=== PATIENT | female | born 1990 | race African-American/Black ===

== ENCOUNTER 2018-02-20 10:02 | Emergency (ER) | payer BC ==
--- NOTE | 2018-02-20 10:14 | PHYS DOC ---
Past History Past Medical History: No Pertinent History Past Surgical History: No Surgical History Alcohol Use: None Drug Use: None Adult General Chief Complaint Chief Complaint: ABDOMINAL PAIN HPI HPI Patient is a 27 year old -Congol[place] female who presents with adult pain. She states she started her menstrual cycle 3 and this morning she has a history of endometriosis and the pain has flared up. She states she started vomiting and vomited several times. She denies any blood in her vomit. She denies any diarrhea. She states that because of her vomiting she was unable taking Advil. She states normally she is able to keep the pain somewhat controlled with over- the-counter medicines. She states this morning because she is vomiting her pains been out of control. She does report suprapubic pain. She has had a tubal ligation in the past. She states her endometriosis was under control and she was that for that's been flaring up again. She states nothing makes the pain better or worse. It's in her suprapubic area and its crampy in nature. She denies any other vaginal discharge. Review of Systems Review of Systems Constitutional: Denies fever or chills [] Eyes: Denies change in visual acuity, redness, or eye pain [] HENT: Denies nasal congestion or sore throat [] Respiratory: Denies cough or shortness of breath [] Cardiovascular: No additional information not addressed in HPI [] GI: Positive for abdominal pain, nausea, vomiting, Denies bloody stools or diarrhea [] : Denies dysuria or hematuria [] Musculoskeletal: Denies back pain or joint pain [] Integument: Denies rash or skin lesions [] Neurologic: Denies headache, focal weakness or sensory changes [] Endocrine: Denies polyuria or polydipsia [] All other systems were reviewed and found to be within normal limits, except as documented in this note. Current Medications Current Medications Current Medications Medications (Trade) Dose Ordered Sig/Katherine Start Time Stop Time Status Last Admin Dose Admin Morphine Sulfate (Morphine 2mg Syringe) 2 mg PRN Q15MIN PRN 02/20/18 10:15 02/21/18 10:14 UNV Sodium Chloride 1,000 ml @ 1,000 mls/hr Q1H 02/20/18 10:10 02/20/18 11:09 UNV Allergies Allergies Allergies Coded Allergies Type Severity Reaction Last Updated Verified No Known Drug Allergies 6/29/15 No Physical Exam Physical Exam Constitutional: Well developed, well nourished, no acute distress, non-toxic appearance. [] HENT: Normocephalic, atraumatic, bilateral external ears normal, oropharynx moist, no oral exudates, nose normal. [] Eyes: PERRLA, EOMI, conjunctiva normal, no discharge. [] Neck: Normal range of motion, no tenderness, supple, no stridor. [] Cardiovascular:Heart rate regular rhythm, no murmur [] Lungs & Thorax: Bilateral breath sounds clear to auscultation [] Abdomen: Bowel sounds hypoactive soft, tender to palpation epigastric area and suprapubic area no rebound or guarding, no masses, no pulsatile masses. [] Skin: Warm, dry, no erythema, no rash. [] Back: No tenderness, no CVA tenderness. [] Extremities: No tenderness, no cyanosis, no clubbing, ROM intact, no edema. [] Neurologic: Alert and oriented X 3, normal motor function, normal sensory function, no focal deficits noted. [] Psychologic: Affect normal, judgement normal, mood normal. [] EKG EKG EKG shows sinus rhythm with rate of 52 bpm without any concerning ST elevations or T-wave inversions, normal axis, QTC 449, as interpreted by me. Radiology/Procedures Radiology/[place] [address] IMAGING REPORT Signed PATIENT: JAMAL DE SOUZA ACCOUNT: [id number] : 1990 LOCATION: ER AGE: 27 SEX: F EXAM STATUS: REG ER ORD. PHYSICIAN: TERENCE TUCKER MD REASON: pain PROCEDURE: CT ABD PELV W/ IV CONTRST ONLY CT study of the abdomen and pelvis with contrast Clinical indications: Mid abdominal pain for one day. Technique: After IV infusion of 75 cc of Omnipaque 300, helical CT scanning of the abdomen and pelvis was performed. No GI contrast was administered. This may decrease the sensitivity to detect GI tract pathology. RS Compliance Statement: One or more of the following individualized dose reduction techniques were utilized for this examination: 1. Automated exposure control 2. Adjustment of the mA and/or kV according to patient size 3. Use of iterative reconstruction technique Comparison: November 20, 2006. Findings: The spleen measures 8.2 cm in length and is normal and the spleen is homogeneous. There is severe periportal edema involving the liver. There is fluid within the gallbladder fossa around the gallbladder. The gallbladder appears normal. No extrahepatic biliary ductal dilatation is seen. An annular pancreas is seen which is a normal anatomical variant. Pancreas enhances homogeneously. The IVC is distended measuring up to 3.3 cm. There is distention of the intrahepatic veins. The intrahepatic veins enhance normally. Portal vein enhances normally. No focal aneurysmal dilatation of the abdominal aorta is seen. No enlarged abdominal or pelvic lymphadenopathy is seen. Both kidneys are normal without hydronephrosis or hydroureter. No adrenal mass is evident. Urinary bladder wall is smooth. There is decreased enhancement of the left side of the uterus. This area measures 3.4 cm. No dominant ovarian cyst or mass is evident. No obstructive bowel pattern is evident. All of the colon is on the left side of the abdomen consistent with at least a partial malrotation. However, the previous study demonstrated part of the colon on the right side of the abdomen as well. The previous study demonstrated a normal ligament of Treitz. No free air or free fluid or mesenteric edema is seen. No lung base consolidation is evident. No osteolytic process is seen. IMPRESSION: There is severe periportal edema. This may be seen with hepatitis. However, there is abnormal distention of the IVC measuring up to 3.3 cm along with distention of the intrahepatic veins. Periportal edema may be seen with right-sided heart failure given the distention of the IVC. Small amount of fluid is seen within the gallbladder fossa most likely secondary to the periportal edema. Gallbladder appears normal otherwise. Annular pancreas which is a anatomical variant. The colon is completely on the left side of the abdomen suggesting at least a partial malrotation. However, part of the colon was present on right side abdomen as well on the previous study. Has patient had surgery in the interim? The appendix is not visualized as a result. However there are no CT findings indicative of appendicitis. No bowel obstruction or free air or free fluid is evident otherwise. 3.4 cm area of decreased enhancement of the left side of the uterus. This may be secondary to uterine fibroid. Endometrial malignancy or adenomyosis may have this appearance as well. This may be further evaluated with outpatient transabdominal and transvaginal sonography. DICTATED AND SIGNED BY: DOUG MG MD DATE: 02/20/18 1330 CC: TERENCE TUCKER MD; PCP,NO ~ [address] [address] IMAGING REPORT Signed PATIENT: JAMAL DE SOUZA ACCOUNT: [id number] : 1990 LOCATION: ER AGE: 27 SEX: F EXAM STATUS: REG ER ORD. PHYSICIAN: TERENCE TUCKER MD REASON: pain PROCEDURE: US PELVIS W/TV Transabdominal and transvaginal sonography of the pelvis Indications: Abdominal pain for one day. Started menstruation at 3:00 AM this morning. Severe cramps. History of endometriosis. Comparison: CT study performed today. Transabdominal sonography: The uterus is anteverted in position. The longitudinal and AP and transverse dimensions of the uterus are 8.4 cm and 4.4 cm and 4.5 cm respectively. The endometrial canal measures 5 mm in caliber which is normal. No uterine mass or fibroid is seen. The right ovary is not visualized by transabdominal exam. Therefore, transvaginal sonography will be performed. The left ovary is normal. Prominent adnexal vasculature is seen bilaterally. Transvaginal sonography: The endometrial canal measures 6.6 cm in thickness which is normal. No hyperemia of the endometrial canal is seen. The uterus appears normal otherwise. Therefore, the finding seen on CT may represent differential perfusion attenuation and is a normal finding therefore. The right ovary measures 2.7 cm and 2.9 cm and 1.6 cm in size and contains a 1.5 cm cyst. Color Doppler flow is seen within the right ovary. The left ovary measures 2.2 cm and 3.3 cm and 2.0 cm in size and is normal. Color Doppler flow is seen within the left ovary. Prominent adnexal vasculature is seen bilaterally more so on the left side. No adnexal mass is seen otherwise. No free fluid is evident. IMPRESSION: Normal-appearing uterus. Therefore, the finding seen on CT represents differential perfusion attenuation of the uterus which may be seen normally. There is a 1.5 cm follicular cyst of the right ovary. Otherwise both ovaries are normal. Color Doppler flow is seen within both ovaries. Prominent adnexal vasculature bilaterally which may be seen with pelvic congestion syndrome. This pelvic congestion. This is prominent on the left side by sonography and within reviewing the CT study appears more prominent on the left side on the CT study as well. On the CT study, the left ovarian vein is patent all the way up to to the left renal vein. It is possible that the pelvic congestion findings could be a reflection of the distended IVC discussed on the CT study. The iliac veins are distended as well. DICTATED AND SIGNED BY: DOUG MG MD DATE: 02/20/18 9344 CC: TERENCE TUCKER MD; PCP,NO ~ Impressions: Abdominal pain Elevated lactic acid Course & Med Decision Making Course & Med Decision Making Pertinent Labs and Imaging studies reviewed. (See chart for details) Patient has elevated lactic acid of 4.7. She received 2 L of normal saline CT scan shows possible malrotation in addition to dilation the IVC. Ultrasound was also performed which shows similar results of her pelvis. Spoke with transfer team who accepts the patient emergently to . She was given 1 dose of Zosyn. Her pain currently is controlled and repeat labs shows improvement in her acidosis. She is agreeable to the plan and is in stable condition at this time. It was explained to the patient she needs emergent surgery a few weeks transferred emergently to the [facility]. Her and her boyfriend's agreeable to plan and she is in stable condition this time. I spent approximately 55 minutes working and engaged directly in the patient care providing critical care evaluation this includes but not limited to time spent engaged in work directly related to the individual patients care. I spent time at the bedside, reviewing test results, discussing the case with staff, documenting the medical record and time spent with EMS discussing specific treatment issues when the patient presented and during his evaluation. This includes any discussion and updates with family members and/or patient. Dragon Disclaimer Dragon Disclaimer This electronic medical record was generated, in whole or in part, using a voice recognition dictation system. Departure Departure: Impression: Primary Impression: Abdominal pain Disposition: XFER OTHER Condition: STABLE Referrals: PCP,NO (PCP) Problem Qualifiers Primary Impression: Abdominal pain Abdominal location: unspecified location Qualified Codes: R10.9 - Unspecified abdominal pain TERENCE TUCKER MD Feb 20, 2018 10:14
[2018-02-20] MEDS ORDERED: MORPHINE SULFATE 2 MG/ML DISP.SYRIN. IV/SQ PRN (10:15)
[2018-02-20] MEDS ORDERED: MORPHINE SULFATE 4 MG/ML DISP.SYRIN. ONE (10:19)
--- NOTE | 2018-02-20 10:23 | EKG ---
[address] [address] Test Date: 2018-02-20 Test Time: 10:19:38 Pat Name: JAMAL DE SOUZA Department: Room: Gender: F [employer] Digger: : 1990 Requested By: TERENCE TUCKER Order Number: [id number] Reading MD: Harjinder Johnson MD Measurements Intervals [place] Rate: 52 P: 0 MD: 104 QRS: 84 QRSD: 78 T: 60 QT: 480 QTc: 449 Interpretive Statements SINUS RHYTHM Electronically Signed On 02-22-2018 13:33:30 CDT by Harjinder Johnson MD
[2018-02-20] MEDS: IV NORMAL SALINE 1,000ML 1,000 ML IV SCH ×2 (10:26→11:22)
[2018-02-20 10:27] LABS: BASO % 1 % (0-3); EOS % 0 % (0-3); HEMATOCRIT 39.7 % (36.0-47.0); HEMOGLOBIN 13.4 g/dL (12.0-15.5); LYMPH # 0.9 x10^3/uL (1.0-4.8); LYMPH % 14 % (24-48); MEAN CORPUSCULAR HEMOGLOBIN 33 pg (25-35); MEAN CORPUSCULAR HGB CONC 34 g/dL (31-37); MEAN CORPUSCULAR VOLUME 99 fL (79-100); MONO # 0.4 x10^3/uL (0.0-1.1); MONO % 6 % (0-9); NEUT # 5.4 x10^3uL (1.8-7.7); NEUT % 79 % (31-73); PLATELET COUNT 191 x10^3/uL (140-400); RED BLOOD COUNT 4.01 x10^6/uL (3.50-5.40); RED CELL DISTRIBUTION WIDTH 15.4 % (11.5-14.5); WHITE BLOOD COUNT 6.8 x10^3/uL (4.0-11.0)
[2018-02-20] MEDS ORDERED: ONDANSETRON PF 4 MG/2 ML VIAL. IV ONE (10:30)
[2018-02-20] MEDS: MORPHINE SULFATE 4 MG/ML DISP.SYRIN. IV/SQ PRN ×4 (10:31→14:40)
[2018-02-20 10:40] LABS: PREG TEST PT QUAL NEGATIVE (NEG)
[2018-02-20 10:51] LABS: ALBUMIN 3.8 g/dL (3.4-5.0); ALK PHOS 52 U/L (46-116); ALT (SGPT) 25 U/L (14-59); ANION GAP 17 (6-14); AST (SGOT) 28 U/L (15-37); BLOOD UREA NITROGEN 10 mg/dL (7-20); CALCIUM 9.2 mg/dL (8.5-10.1); CARBON DIOXIDE 17 mmol/L (21-32); CHLORIDE 106 mmol/L (98-107); DIRECT BILIRUBIN 0.1 mg/dL (0.0-0.2); GFR 79.3; GLUCOSE 157 mg/dL (70-99); LIPASE 83 U/L (73-393); POTASSIUM 3.9 mmol/L (3.5-5.1); SODIUM 140 mmol/L (136-145); TOTAL BILIRUBIN 0.5 mg/dL (0.2-1.0)
[2018-02-20] MEDS ORDERED: IOHEXOL 300 MG/ML 75 ML VIAL. IV ONE (11:15)
[2018-02-20 11:18] LABS: BARBITURATES NEG (NEG); BENZODIAZEPINES NEG (NEG); CANNABINOIDS POS (NEG); COCAINE NEG (NEG); METHADONE NEG (NEG); OPIATES POS (NEG); PHENCYCLIDINE NEG (NEG)
[2018-02-20 11:19] LABS: AMPHETAMINE/METHAMPHETAMINE NEG (NEG)
[2018-02-20 11:24] LABS: BILIRUBIN,URINE NEG (NEG); CLARITY,URINE HAZY; COLOR,URINE AMBER; GLUCOSE,URINE NEG (NEG); NITRITE,URINE NEG (NEG); UROBILINOGEN,URINE 0.2 mg/dL (0.2 mg/dL)
[2018-02-20 11:25] LABS: BACTERIA,URINE MOD /HPF (0-FEW); SQUAMOUS EPITHELIAL CELL,UR FEW /LPF
[2018-02-20] MEDS ORDERED: PROMETHAZINE 12.5 MG in IV NORMAL SALINE 50ML 50 ML IV PRN (11:30)
[2018-02-20] MEDS ORDERED: PROMETHAZINE 25 MG/ML VIAL IV ONE (11:36)
[2018-02-20] MEDS ORDERED: IV NORMAL SALINE 1,000ML 1,000 ML IV ONE (11:45)
--- NOTE | 2018-02-20 12:48 | RAD ---
CT study of the abdomen and pelvis with contrast Clinical indications: Mid abdominal pain for one day. Technique: After IV infusion of 75 cc of Omnipaque 300, helical CT scanning of the abdomen and pelvis was performed. No GI contrast was administered. This may decrease the sensitivity to detect GI tract pathology. PQRS Compliance Statement: One or more of the following individualized dose reduction techniques were utilized for this examination: 1. Automated exposure control 2. Adjustment of the mA and/or kV according to patient size 3. Use of iterative reconstruction technique Comparison: November 20, 2006. Findings: The spleen measures 8.2 cm in length and is normal and the spleen is homogeneous. There is severe periportal edema involving the liver. There is fluid within the gallbladder fossa around the gallbladder. The gallbladder appears normal. No extrahepatic biliary ductal dilatation is seen. An annular pancreas is seen which is a normal anatomical variant. Pancreas enhances homogeneously. The IVC is distended measuring up to 3.3 cm. There is distention of the intrahepatic veins. The intrahepatic veins enhance normally. Portal vein enhances normally. No focal aneurysmal dilatation of the abdominal aorta is seen. No enlarged abdominal or pelvic lymphadenopathy is seen. Both kidneys are normal without hydronephrosis or hydroureter. No adrenal mass is evident. Urinary bladder wall is smooth. There is decreased enhancement of the left side of the uterus. This area measures 3.4 cm. No dominant ovarian cyst or mass is evident. No obstructive bowel pattern is evident. All of the colon is on the left side of the abdomen consistent with at least a partial malrotation. However, the previous study demonstrated part of the colon on the right side of the abdomen as well. The previous study demonstrated a normal ligament of Treitz. No free air or free fluid or mesenteric edema is seen. No lung base consolidation is evident. No osteolytic process is seen. IMPRESSION: There is severe periportal edema. This may be seen with hepatitis. However, there is abnormal distention of the IVC measuring up to 3.3 cm along with distention of the intrahepatic veins. Periportal edema may be seen with right-sided heart failure given the distention of the IVC. Small amount of fluid is seen within the gallbladder fossa most likely secondary to the periportal edema. Gallbladder appears normal otherwise. Annular pancreas which is a anatomical variant. The colon is completely on the left side of the abdomen suggesting at least a partial malrotation. However, part of the colon was present on right side abdomen as well on the previous study. Has patient had surgery in the interim? The appendix is not visualized as a result. However there are no CT findings indicative of appendicitis. No bowel obstruction or free air or free fluid is evident otherwise. 3.4 cm area of decreased enhancement of the left side of the uterus. This may be secondary to uterine fibroid. Endometrial malignancy or adenomyosis may have this appearance as well. This may be further evaluated with outpatient transabdominal and transvaginal sonography.
--- NOTE | 2018-02-20 13:13 | RAD ---
Transabdominal and transvaginal sonography of the pelvis Indications: Abdominal pain for one day. Started menstruation at 3:00 AM this morning. Severe cramps. History of endometriosis. Comparison: CT study performed today. Transabdominal sonography: The uterus is anteverted in position. The longitudinal and AP and transverse dimensions of the uterus are 8.4 cm and 4.4 cm and 4.5 cm respectively. The endometrial canal measures 5 mm in caliber which is normal. No uterine mass or fibroid is seen. The right ovary is not visualized by transabdominal exam. Therefore, transvaginal sonography will be performed. The left ovary is normal. Prominent adnexal vasculature is seen bilaterally. Transvaginal sonography: The endometrial canal measures 6.6 cm in thickness which is normal. No hyperemia of the endometrial canal is seen. The uterus appears normal otherwise. Therefore, the finding seen on CT may represent differential perfusion attenuation and is a normal finding therefore. The right ovary measures 2.7 cm and 2.9 cm and 1.6 cm in size and contains a 1.5 cm cyst. Color Doppler flow is seen within the right ovary. The left ovary measures 2.2 cm and 3.3 cm and 2.0 cm in size and is normal. Color Doppler flow is seen within the left ovary. Prominent adnexal vasculature is seen bilaterally more so on the left side. No adnexal mass is seen otherwise. No free fluid is evident. IMPRESSION: Normal-appearing uterus. Therefore, the finding seen on CT represents differential perfusion attenuation of the uterus which may be seen normally. There is a 1.5 cm follicular cyst of the right ovary. Otherwise both ovaries are normal. Color Doppler flow is seen within both ovaries. Prominent adnexal vasculature bilaterally which may be seen with pelvic congestion syndrome. This pelvic congestion. This is prominent on the left side by sonography and within reviewing the CT study appears more prominent on the left side on the CT study as well. On the CT study, the left ovarian vein is patent all the way up to to the left renal vein. It is possible that the pelvic congestion findings could be a reflection of the distended IVC discussed on the CT study. The iliac veins are distended as well.
[2018-02-20] MEDS ORDERED: PIPERACILLIN/TAZOBACTAM 4.5 GM in IV NORMAL SALINE 50ML 50 ML IV ONE (13:15)
[2018-02-20] MEDS ORDERED: PIP/TAZO PER PHARMACY MC PRN (13:15)
[2018-02-20 13:46] LABS: CREATININE 0.7 mg/dL (0.6-1.0); GFR 119.7; POTASSIUM 3.8 mmol/L (3.5-5.1)
[2018-02-20 14:21] VITALS: BP 114/67
[2018-02-20] MEDS ORDERED: IV NORMAL SALINE 50ML 50 ML ONE (14:31)
[2018-02-20] MEDS ORDERED: PIPERACILLIN/TAZOBACTAM 4.5 GM VIAL IV ONE (14:31)
[2018-02-20] MEDS ORDERED: PROMETHAZINE 12.5 MG in IV NORMAL SALINE 50ML 50 ML IV ONE (15:15)
== END 2018-02-20 14:45 | disposition short-term general hospital (02) ==
LOC: ER 10:02
DX: R10.30 Lower abdominal pain, unspecified (principal); R10.13 Epigastric pain; R11.2 Nausea with vomiting, unspecified; R74.0 Nonspecific elevation of levels of transaminase and lactic acid dehydrogenase [LDH]
CPT/HCPCS: 36415; 74177; 76830; 76856; 80048; 80076; 80307; 81001; 82553; 83605; 83690; 84484; 84703; 85025; 87086; 93005; 96361; 96365; 96375; 96376; 99291; J2270; J2405; J2543; J2550; Q9967; 81025; G0479; J7030

== ENCOUNTER 2020-01-02 09:59 | Emergency (ER) | payer SELFPAY ==
[~2020-01-02] VITALS: Ht 167.6 cm; Wt 52.2 kg
[2020-01-02] MEDS ORDERED: IV NORMAL SALINE 1,000ML 1,000 ML IV ONE ×2 (10:45→13:00)
[2020-01-02] MEDS ORDERED: ONDANSETRON PF 4 MG/2 ML VIAL. IVP ONE (10:45)
[2020-01-02 10:48] LABS: CALCIUM 8.4 mg/dL (8.5-10.1); CREATININE 0.8 mg/dL (0.6-1.0); GFR 101.2; POTASSIUM 3.2 mmol/L (3.5-5.1)
[2020-01-02 10:53] LABS: BASO % 0 % (0-3); EOS % 0 % (0-3); HEMOGLOBIN 14.7 g/dL (12.0-15.5); LYMPH # 1.2 x10^3/uL (1.0-4.8); LYMPH % 19 % (24-48); MEAN CORPUSCULAR HEMOGLOBIN 33 pg (25-35); MEAN CORPUSCULAR HGB CONC 33 g/dL (31-37); MEAN CORPUSCULAR VOLUME 100 fL (79-100); MONO # 0.6 x10^3/uL (0.0-1.1); MONO % 9 % (0-9); NEUT # 4.7 x10^3uL (1.8-7.7); NEUT % 72 % (31-73); PLATELET COUNT 144 x10^3/uL (140-400); PREG TEST PT QUAL NEGATIVE (NEG); RED BLOOD COUNT 4.39 x10^6/uL (3.50-5.40); RED CELL DISTRIBUTION WIDTH 14.9 % (11.5-14.5); WHITE BLOOD COUNT 6.5 x10^3/uL (4.0-11.0)
[2020-01-02 10:54] LABS: ALBUMIN 3.8 g/dL (3.4-5.0); TOTAL BILIRUBIN 0.4 mg/dL (0.2-1.0); TOTAL PROTEIN 7.5 g/dL (6.4-8.2)
--- NOTE | 2020-01-02 10:54 | PHYS DOC ---
Past History Past Medical History: GERD, Other Past Surgical History: Tubal ligation, Other Alcohol Use: Occasionally Drug Use: None Adult General Chief Complaint Chief Complaint: NAUSEA/VOMITING/DIARRHEA HPI HPI Patient is a 29-year-old female who presented to ER today for evaluation of nausea, vomiting, diarrhea, abdominal pain Wednesday. Patient had not been able to keep anything down. Patient says she started feeling sick on Wednesday, she had vomited hard multiple times then afterward she started having severe pain in her abdominal area. Patient has history of bowel obstruction in the past, that required operation to fix. Patient denies any recent travel anywhere. She denies any sore throat, no chest pain, no cough, no headache. Patient denies any blood in her stool. Review of Systems Review of Systems Constitutional: Positive for fever and chills [] Eyes: Denies change in visual acuity, redness, or eye pain [] HENT: Denies nasal congestion or sore throat [] Respiratory: Denies cough or shortness of breath [] Cardiovascular: No additional information not addressed in HPI [] GI: positive for abdominal pain, nausea, vomiting, and diarrhea [] : Denies dysuria or hematuria [] Musculoskeletal: Denies back pain or joint pain [] Integument: Denies rash or skin lesions [] Neurologic: Denies headache, focal weakness or sensory changes [] Endocrine: Denies polyuria or polydipsia [] All other systems were reviewed and found to be within normal limits, except as documented in this note. Current Medications Current Medications Current Medications Medications (Trade) Dose Ordered Sig/[facility] Start Time Stop Time Status Last Admin Dose Admin Ondansetron HCl (Zofran) 4 mg 1X ONCE 01/02/20 10:45 01/02/20 10:46 DC Sodium Chloride 1,000 ml @ 1,000 mls/hr 1X ONCE 01/02/20 10:45 01/02/20 11:44 01/02/20 10:45 1,000 MLS/HR Allergies Allergies Allergies Coded Allergies Type Severity Reaction Last Updated Verified No Known Drug Allergies 05/13/15 No Physical Exam Physical Exam Constitutional: Well developed, well nourished, no acute distress, non-toxic appearance. [] HENT: Normocephalic, atraumatic, bilateral external ears normal, oropharynx moist, no oral exudates, nose normal. [] Eyes: PERRLA, EOMI, conjunctiva normal, no discharge. [] Neck: Normal range of motion, no tenderness, supple, no stridor. [] Cardiovascular:Heart rate regular rhythm, no murmur [] Lungs & Thorax: Bilateral breath sounds clear to auscultation [] Abdomen: Bowel sounds normal, soft, there tenderness to palpation in midabdominal area, no rebound, no guarding, no masses, no pulsatile masses. [] Skin: Warm, dry, no erythema, no rash. [] Back: No tenderness, no CVA tenderness. [] Extremities: No tenderness, no cyanosis, no clubbing, ROM intact, no edema. [] Neurologic: Alert and oriented X 3, normal motor function, normal sensory function, no focal deficits noted. [] Psychologic: Affect normal, judgement normal, mood normal. [] Current Patient Data Vital Signs Vital Signs Date Time Temp Pulse Resp B/P (MAP) Pulse Ox O2 Delivery O2 Flow Rate FiO2 01/02/20 10:22 100.5 118 18 111/71 (84) 96 Room Air Lab Results Laboratory Tests Test 01/02/20 10:15 White Blood Count 6.5 x10^3/uL (4.0-11.0) Red Blood Count 4.39 x10^6/uL (3.50-5.40) Hemoglobin 14.7 g/dL (12.0-15.5) Hematocrit 44.0 % (36.0-47.0) Mean Corpuscular Volume 100 fL (79-100) Mean Corpuscular Hemoglobin 33 pg (25-35) Mean Corpuscular Hemoglobin Concent 33 g/dL (31-37) Red Cell Distribution Width 14.9 % (11.5-14.5) H Platelet Count 144 x10^3/uL (140-400) Neutrophils (%) (Auto) 72 % (31-73) Lymphocytes (%) (Auto) 19 % (24-48) L Monocytes (%) (Auto) 9 % (0-9) Eosinophils (%) (Auto) 0 % (0-3) Basophils (%) (Auto) 0 % (0-3) Neutrophils # (Auto) 4.7 x10^3uL (1.8-7.7) Lymphocytes # (Auto) 1.2 x10^3/uL (1.0-4.8) Monocytes # (Auto) 0.6 x10^3/uL (0.0-1.1) Eosinophils # (Auto) 0.0 x10^3/uL (0.0-0.7) Basophils # (Auto) 0.0 x10^3/uL (0.0-0.2) Sodium Level 137 mmol/L (136-145) Potassium Level 3.2 mmol/L (3.5-5.1) L Chloride Level 102 mmol/L (98-107) Carbon Dioxide Level 19 mmol/L (21-32) L Anion Gap 16 (6-14) H Blood Urea Nitrogen 7 mg/dL (7-20) Creatinine 0.8 mg/dL (0.6-1.0) Estimated GFR (Cockcroft-Gault) 101.2 BUN/Creatinine Ratio 9 (6-20) Glucose Level 85 mg/dL (70-99) Calcium Level 8.4 mg/dL (8.5-10.1) L Total Bilirubin Pending Aspartate Amino Transferase (AST) Pending Alanine Aminotransferase (ALT) Pending Alkaline Phosphatase Pending Total Protein Pending Albumin Pending Albumin/Globulin Ratio Pending Lipase Pending Serum Test, Qualitative Negative (NEG) EKG EKG [] Radiology/Procedures Radiology/Procedures [][place] [address] IMAGING REPORT Signed PATIENT: JAMLA DE SOUZA ACCOUNT: [id number] : 1990 LOCATION: ER AGE: 29 SEX: F EXAM STATUS: REG ER ORD. PHYSICIAN: JIL MCGILL DO REASON: abdominal pain, nausea, vomiting-DRINKING 12:00 PROCEDURE: CT ABD PEL W/ORAL CONTRST ONLY EXAM: CT Abdomen and Pelvis without IV contrast CLINICAL HISTORY: abdominal pain, nausea, vomiting. COMPARISON: 02/20/2018 TECHNIQUE: Helical CT of the abdomen and pelvis without intravenous contrast. Axial, coronal and sagittal reformatted images were generated. PQRS compliance statement - One or more of the following individualized dose reduction techniques were utilized for this study: 1. Automated exposure control 2. Adjustment of the mA and/or kV according to patient size 3. Use of iterative reconstruction technique FINDINGS: Lack of intravenous contrast limits evaluation of solid organs, vasculature, and lymph nodes. Lower chest: Groundglass opacities in the medial right lower lobe likely atelectasis or developing consolidation. Abdomen and Pelvis: No focal liver lesion. Accounting for postcholecystectomy state, no biliary ductal dilatation. Spleen is unremarkable. Adrenal glands and pancreas are unremarkable. Punctate nonobstructing right lower pole renal calculus. No focal renal lesion. No hydronephrosis. Appendix is not seen. No small or large bowel dilatation. Moderate colonic stool content. Small fat-containing periumbilical hernia. Bones: No aggressive osseous lesion is seen. IMPRESSION: 1. Nonobstructing right lower pole renal calculus. 2. No bowel obstruction. 3. The appendix is not seen although no significant right lower quadrant inflammatory changes are seen. Electronically signed by: Severo Fields MD (01/02/2020 1:21 PM) [id number] DICTATED AND SIGNED BY: SEVERO FIELDS MD DATE: 01/02/20 1321 CC: MARGOT DYER; JIL MCGILL DO ~ Course & Med Decision Making Course & Med Decision Making Pertinent Labs and Imaging studies reviewed. (See chart for details) Patient is a 29-year-old female who was fOUND to have influenza, she was given IV fluid in the ER, feeling much better. Her symptoms have been going on since Wednesday, Tamiflu would not be effective anymore. We'll discharge her home with nausea medication. Dragon Disclaimer Dragon Disclaimer This electronic medical record was generated, in whole or in part, using a voice recognition dictation system. Departure Departure: Impression: Primary Impression: Influenza Additional Impression: Gastroenteritis Disposition: HOME, SELF-CARE Condition: IMPROVED Referrals: PCPMARGOT (PCP) Follow with her family doctor in a couple day for reevaluation. Patient Instructions: Influenza, Adult, Viral Gastroenteritis Additional Instructions: Thank you for visiting our Emergency Department. We appreciate you trusting us with your care. If any additional problems come up don't hesitate to return to visit us. Please follow up with your primary care provider so they can plan additional care if needed and know about the problem that you had. If symptoms worsen come back to the Emergency Department. Any concerning symptoms that start such as chest pain, shortness of air, weakness or numbness on one side of the body, running high fevers or any other concerning symptoms return to the ER. Scripts Ondansetron Hcl (ZOFRAN) 4 Mg Tablet 1 TAB PO Q6HRS for NAUSEA , #15 TAB Prov: JIL MCGILL DO 01/02/20 Problem Qualifiers JIL MCGILL DO Jan 02, 2020 10:54
[2020-01-02 11:25] LABS: BILIRUBIN,URINE NEG (NEG); CLARITY,URINE CLOUDY; COLOR,URINE YELLOW; GLUCOSE,URINE NEG (NEG); NITRITE,URINE NEG (NEG)
[2020-01-02 11:26] LABS: BACTERIA,URINE FEW /HPF (0-FEW); SQUAMOUS EPITHELIAL CELL,UR MOD /LPF
[2020-01-02 11:31] LABS: INFLUENZA A PATIENT NEGATIVE (NEGATIVE); INFLUENZA B PATIENT POSITIVE (NEGATIVE)
[2020-01-02] MEDS ORDERED: IOHEXOL 240 MG/ML 50ML VIAL. PO ONE (12:00)
--- NOTE | 2020-01-02 13:25 | RAD ---
EXAM: CT Abdomen and Pelvis without IV contrast CLINICAL HISTORY: abdominal pain, nausea, vomiting. COMPARISON: 02/20/2018 TECHNIQUE: Helical CT of the abdomen and pelvis without intravenous contrast. Axial, coronal and sagittal reformatted images were generated. PQRS compliance statement - One or more of the following individualized dose reduction techniques were utilized for this study: 1. Automated exposure control 2. Adjustment of the mA and/or kV according to patient size 3. Use of iterative reconstruction technique FINDINGS: Lack of intravenous contrast limits evaluation of solid organs, vasculature, and lymph nodes. Lower chest: Groundglass opacities in the medial right lower lobe likely atelectasis or developing consolidation. Abdomen and Pelvis: No focal liver lesion. Accounting for postcholecystectomy state, no biliary ductal dilatation. Spleen is unremarkable. Adrenal glands and pancreas are unremarkable. Punctate nonobstructing right lower pole renal calculus. No focal renal lesion. No hydronephrosis. Appendix is not seen. No small or large bowel dilatation. Moderate colonic stool content. Small fat-containing periumbilical hernia. Bones: No aggressive osseous lesion is seen. IMPRESSION: 1. Nonobstructing right lower pole renal calculus. 2. No bowel obstruction. 3. The appendix is not seen although no significant right lower quadrant inflammatory changes are seen. Electronically signed by: Severo López MD (01/02/2020 1:21 PM) [id number]
[2020-01-02] MEDS ORDERED: POTASSIUM CHLORIDE 10 MEQ TABLET.ER. PO ONE (13:30)
[2020-01-02 13:49] VITALS: BP 124/70
[2020-01-02] MEDS ORDERED: ONDA4TAB7 PO (14:20)
== END 2020-01-02 14:30 | disposition home or self-care (01) ==
LOC: ER 09:59
DX: K52.9 Noninfective gastroenteritis and colitis, unspecified (principal); J11.1 Influenza due to unidentified influenza virus with other respiratory manifestations; K21.9 Gastro-esophageal reflux disease without esophagitis
CPT/HCPCS: 36415; 74176; 80053; 81001; 83690; 84703; 85025; 87804; 96361; 96374; 99284; J2405; Q9966; J7030

== ENCOUNTER 2020-07-17 10:08 | Emergency (ER) | payer SELFPAY ==
[~2020-07-17] VITALS: Ht 165.1 cm; Wt 45.0 kg
[~2020-07-17 10:08] MED LIST: ONDA4TAB7 PO
[2020-07-17] MEDS ORDERED: ONDANSETRON PF 4 MG/2 ML VIAL. ONE (10:27)
[2020-07-17] MEDS ORDERED: IV NORMAL SALINE 1,000ML 1,000 ML IV SCH (10:29)
[2020-07-17] MEDS ORDERED: ONDANSETRON PF 4 MG/2 ML VIAL. IVP ONE (10:30)
--- NOTE | 2020-07-17 10:34 | PHYS DOC ---
Past History Past Medical History: GERD, Other Past Surgical History: Tubal ligation, Other Alcohol Use: Occasionally Drug Use: None Adult General Chief Complaint Chief Complaint: MULTIPLE COMPLAINTS HPI HPI Patient is a 29-year-old female who presents with generalized abdominal pain. She reports this is an acute on chronic phenomena. Patient reports being seen at [facility] 3 days ago and was diagnosed with a ruptured ovarian cyst, it was deemed an uncomplicated at the time and patient was discharged home with supportive care. Nonetheless, patient reports worsened generalized abdominal pain that is 10 out of 10 in the past 12 hours. Nothing known makes better. Ambulating makes worse. Patient reports sharp, deep pains throughout abdomen that are nonspecific and 10 out of 10 severity, no radiation. Timing of symptoms has been constant since onset and worsening. Patient has not been able to tolerate any p.o. intake since waking up today, reports generalized chest tightness and shortness of breath due to pain. Denies any fever, COVID-19 contacts, headache, fall, trauma or other inciting event, no concerning ingestion, no recent travel, no urinary symptoms, no observable blood in bowel or urine, no changes in urinary or bowel function Review of Systems Review of Systems Fourteen body systems of review of systems have been reviewed. See HPI for pertinent positives and negative responses, other mills all other systems are negative, non-pertinent or non-contributory Current Medications Current Medications Current Medications Medications (Trade) Dose Ordered Sig/[facility] Start Time Stop Time Status Last Admin Dose Admin Ondansetron HCl (Zofran) 4 mg STK-MED ONCE 07/17/20 10:27 07/17/20 10:27 DC Allergies Allergies Allergies Coded Allergies Type Severity Reaction Last Updated Verified No Known Drug Allergies 01/02/20 No Physical Exam Physical Exam Constitutional: Well developed, well nourished, moderate acute distress, odor of marijuana present HENT: Normocephalic, atraumatic, bilateral external ears normal, oropharynx moist, no oral exudates, nose normal. Eyes: PERRLA, EOMI, conjunctiva normal, no discharge. Neck: Normal range of motion, no tenderness, supple, no stridor. Cardiovascular: Heart rate bradycardic, sinus rhythm, no murmurs rubs or gallops Lungs & Thorax: Bilateral breath sounds clear to auscultation Abdomen: Bowel sounds normal, soft, generalized tenderness, guarding present, no rebound, constantly moving on exam bed due to pain, no masses, no pulsatile masses. Skin: Warm, dry, no erythema, no rash. Back: No tenderness, no CVA tenderness. Extremities: No tenderness, no cyanosis, no clubbing, ROM intact, no edema. Neurologic: Alert and oriented X 3, grossly normal motor & sensory function, no focal deficits noted. Psychologic: Affect normal, judgement normal, anxious mood Current Patient Data Vital Signs Vital Signs Date Time Temp Pulse Resp B/P (MAP) Pulse Ox O2 Delivery O2 Flow Rate FiO2 07/17/20 11:10 45 18 137/70 (92) 100 Room Air 07/17/20 10:44 97.8 Lab Results Laboratory Tests Test 07/17/20 10:16 07/17/20 10:24 Glucose (Fingerstick) 116 mg/dL (70-99) White Blood Count 7.0 x10^3/uL (4.0-11.0) Red Blood Count 4.07 x10^6/uL (3.50-5.40) Hemoglobin 14.1 g/dL (12.0-15.5) Hematocrit 41.4 % (36.0-47.0) Mean Corpuscular Volume 102 fL (79-100) Mean Corpuscular Hemoglobin 35 pg (25-35) Mean Corpuscular Hemoglobin Concent 34 g/dL (31-37) Red Cell Distribution Width 15.6 % (11.5-14.5) Platelet Count 223 x10^3/uL (140-400) Neutrophils (%) (Auto) 75 % (31-73) Lymphocytes (%) (Auto) 17 % (24-48) Monocytes (%) (Auto) 7 % (0-9) Eosinophils (%) (Auto) 0 % (0-3) Basophils (%) (Auto) 1 % (0-3) Neutrophils # (Auto) 5.3 x10^3uL (1.8-7.7) Lymphocytes # (Auto) 1.2 x10^3/uL (1.0-4.8) Monocytes # (Auto) 0.5 x10^3/uL (0.0-1.1) Eosinophils # (Auto) 0.0 x10^3/uL (0.0-0.7) Basophils # (Auto) 0.0 x10^3/uL (0.0-0.2) Prothrombin Time 11.0 SEC (9.4-11.4) Prothromb Time International Ratio 1.1 (0.9-1.1) Activated Partial Thromboplast Time 24 SEC (23-33) Sodium Level 140 mmol/L (136-145) Potassium Level 3.3 mmol/L (3.5-5.1) Chloride Level 105 mmol/L (98-107) Carbon Dioxide Level 21 mmol/L (21-32) Anion Gap 14 (6-14) Blood Urea Nitrogen 13 mg/dL (7-20) Creatinine 1.2 mg/dL (0.6-1.0) Estimated GFR (Cockcroft-Gault) 63.4 BUN/Creatinine Ratio 11 (6-20) Glucose Level 122 mg/dL (70-99) Calcium Level 9.9 mg/dL (8.5-10.1) Total Bilirubin 0.5 mg/dL (0.2-1.0) Aspartate Amino Transf (AST/SGOT) 36 U/L (15-37) Alanine Aminotransferase (ALT/SGPT) 42 U/L (14-59) Alkaline Phosphatase 50 U/L (46-116) Troponin I Quantitative < 0.017 ng/mL (0-0.055) Total Protein 7.6 g/dL (6.4-8.2) Albumin 4.1 g/dL (3.4-5.0) Albumin/Globulin Ratio 1.2 (1.0-1.7) Lipase 81 U/L (73-393) Serum Test, Qualitative Negative (NEG) EKG EKG EKG ordered and interpreted by myself at 1047 hrs. as sinus bradycardia at 51 bpm, unremarkable intervals, no axis deviation, no acute ischemic findings, no STEMI. EKG low quality due to artifact from patient being unable to lay still, will repeat later once pain is controlled Radiology/Procedures Radiology/Procedures PROCEDURE: PORTABLE CHEST 1V EXAMINATION: PORTABLE CHEST 1V CLINICAL HISTORY: Reason: CHEST PAIN, WEAKNESS EXAM DATE/TIME: 07/17/2020 10:29 AM COMPARISON: None FINDINGS: Lines, tubes, and devices: None. Cardiomediastinal silhouette: Within normal limits. Lungs and pleura: No evidence of focal airspace consolidation or pleural effusion. Pulmonary vasculature unremarkable. Bones and soft tissues: No acute osseous abnormality. IMPRESSION: No evidence of acute cardiopulmonary abnormality. Electronically signed by: Jesús Lundberg DO (07/17/2020 10:52 AM) [id number] PROCEDURE: CT ABDOMEN PELVIS WO CONTRAST EXAM: CT Abdomen and Pelvis without IV contrast INDICATION: Reason: generalized AP, recent ovarian cyst rupture / Spl. Instructions: / History: TECHNIQUE: Multi-detector row CT images were acquired from the lung bases through the abdomen and pelvis without the use of IV contrast. Sagittal and coronal images were acquired from the transaxial data. All CT scans performed at this facility utilize dose optimization techniques as appropriate to the exam, including the following: Automated exposure control and adjustment of the mA and/or KV according to patient size (this includes techniques or standardized protocols for targeted exams where dose is indication/reason for exam). ORAL CONTRAST: None COMPARISON: 01/02/[address] without IV contrast FINDINGS: The absence of IV contrast limits evaluation of soft tissue pathology. LOWER CHEST: Unremarkable LIVER: Unremarkable BILIARY SYSTEM: Gallbladder is unremarkable. Bile ducts are not dilated. PANCREAS: Unremarkable SPLEEN: Unremarkable ADRENALS: Unremarkable KIDNEYS & URETERS: Redemonstrated is increased density to the bilateral renal pyramids, approaching formation or renal calculi 1 to 2 mm in diameter in the mid right kidney. BLADDER: Unremarkable REPRODUCTIVE ORGANS: Retroflexed uterus. No dominant adnexal mass or cyst. GASTROINTESTINAL: The stomach, small bowel, and colon are unremarkable. The appendix is normal. MESENTERY/PERITONEUM/RETROPERITONEUM: Trace amount of pelvic free fluid. VASCULAR: Unremarkable LYMPH NODES: No adenopathy OSSEOUS & SOFT TISSUES: Unremarkable IMPRESSION: 1. Trace residual pelvic ascites. No acute pathology otherwise shown on noncontrast abdominal and pelvic CT. 2. Increased density to the bilateral renal pyramids with a nonobstructing mid pole 1 to 2 mm right kidney stone. Query nephrocalcinosis (medullary or pyramidal), with a long list of etiologies including hyperparathyroidism, (hyper or hypo) thyroidism or other pathologic hypercalcemia, hypercalciuric states, sickle cell disease, sarcoidosis, and others. Electronically signed by: Jaun Jorgensen MD (07/17/2020 11:19 AM) [id number] Course & Med Decision Making Course & Med Decision Making Patient in moderate distress due to pain seen on immediate ER arrival Airway patent, patient in mild respiratory distress due to pain, bradycardic otherwise vital signs unremarkable Limited HPI obtained due to patient pain, comprehensive physical exam performed, subsequent diagnostic work-up ordered IV access obtained, 1 L normal saline, 8 mg Zofran, 50 mcg fentanyl, 5 mg Haldol administered with near total improvement in symptomology Patient reassessed several times throughout ER admission and asymptomatic ER work-up reviewed, grossly negative. Discussed most likely diagnoses of cannabis hyperemesis syndrome for which she was treated for in addition to residual pelvic pain from ruptured ovarian cyst versus questionable bilateral kidney stones Discussed this may be an acute presentation of more concerning pathology however, at present, no further diagnostic work-up or inpatient admission is indicated, patient agreed Joint decision to discharge home in stable condition with continued supportive care and close PCP follow-up Strict return precautions discussed with good understanding by patient, all questions and concerns addressed prior to ER departure home in stable condition with significant other Dragon Disclaimer Dragon Disclaimer This electronic medical record was generated, in whole or in part, using a voice recognition dictation system. PERC Rule for PE PERC Rule for PE Response (Comments) Value Age > 50: No 0 HR > 100: No 0 Sa02 on room air <95%: No 0 Unilateral leg swelling: No 0 Hemoptysis: No 0 Recent surgery or trauma: No 0 Prior PE or DVT: No 0 Hormone use: No 0 Total 0 The HEART Score for CP Pts HEART Score for Chest Pain: HEART Score for Chest Pain Response (Comments) Value History Slighlty/Non-Suspicious 0 ECG Normal 0 Age < 45 0 Risk Factors No Risk Factors 0 Troponin < Normal Limit 0 Total 0 Risk Factors: Risk Factors: DM, Current or recent (<one month) smoker, HTN, HLP, family history of CAD, obesity. Risk Scores: Score 0 - 3: 2.5% MACE over next 6 weeks - Discharge Home Score 4 - 6: 20.3% MACE over next 6 weeks - Admit for Clinical Observation Score 7 - 10: 72.7% MACE over next 6 weeks - Early Invasive Strategies Departure Departure: Impression: Primary Impression: Abdominal pain Additional Impressions: Pelvic adnexal fluid collection Kidney stones Cannabis abuse Disposition: HOME/RESIDENCE PRIOR TO ADM Condition: STABLE Referrals: PCP,NO (PCP) Patient Instructions: Abdominal Pain (Nonspecific) Additional Instructions: You have been evaluated in the Emergency Department today for abdominal pain. Your evaluation was not suggestive of any emergent condition requiring medical intervention at this time. However, some abdominal problems make take more time to appear. Therefore, it is important for you to watch for any new symptoms or worsening of your current condition. As discussed prior to ER departure, please call your PCP first thing after ER departure to schedule follow-up visit in upcoming 1 to 9 days time Return to the Emergency Department if you experience worsening pain, persistent fevers greater than 100.4, recurrent vomiting, blood in vomit, blood in stool, dark tarry stool, chest pain, difficulty breathing, or any other concerning symptoms. Justification of Admission: Justification of Admission: Justification of Admission Dx: N/A Problem Qualifiers ENZO SPICER DO Jul 17, 2020 10:34
[2020-07-17 10:41] LABS: BASO % 1 % (0-3); EOS % 0 % (0-3); HEMATOCRIT 41.4 % (36.0-47.0); HEMOGLOBIN 14.1 g/dL (12.0-15.5); LYMPH # 1.2 x10^3/uL (1.0-4.8); LYMPH % 17 % (24-48); MEAN CORPUSCULAR HEMOGLOBIN 35 pg (25-35); MEAN CORPUSCULAR HGB CONC 34 g/dL (31-37); MEAN CORPUSCULAR VOLUME 102 fL (79-100); MONO # 0.5 x10^3/uL (0.0-1.1); MONO % 7 % (0-9); NEUT # 5.3 x10^3uL (1.8-7.7); NEUT % 75 % (31-73); PLATELET COUNT 223 x10^3/uL (140-400); RED BLOOD COUNT 4.07 x10^6/uL (3.50-5.40); RED CELL DISTRIBUTION WIDTH 15.6 % (11.5-14.5)
[2020-07-17 10:47] LABS: CALCIUM 9.9 mg/dL (8.5-10.1); CREATININE 1.2 mg/dL (0.6-1.0); GFR 63.4; POTASSIUM 3.3 mmol/L (3.5-5.1)
[2020-07-17 10:54] LABS: ALBUMIN 4.1 g/dL (3.4-5.0); ALBUMIN/GLOBULIN RATIO 1.2 (1.0-1.7); TOTAL BILIRUBIN 0.5 mg/dL (0.2-1.0); TOTAL PROTEIN 7.6 g/dL (6.4-8.2)
--- NOTE | 2020-07-17 10:55 | RAD ---
EXAMINATION: PORTABLE CHEST 1V CLINICAL HISTORY: Reason: CHEST PAIN, WEAKNESS EXAM DATE/TIME: 07/17/2020 10:29 AM COMPARISON: None FINDINGS: Lines, tubes, and devices: None. Cardiomediastinal silhouette: Within normal limits. Lungs and pleura: No evidence of focal airspace consolidation or pleural effusion. Pulmonary vasculature unremarkable. Bones and soft tissues: No acute osseous abnormality. IMPRESSION: No evidence of acute cardiopulmonary abnormality. Electronically signed by: Jesús Lundberg DO (07/17/2020 10:52 AM) [id number]
[2020-07-17 10:56] LABS: PREG TEST PT QUAL NEGATIVE (NEG)
[2020-07-17] MEDS ORDERED: HALOPERIDOL LACT 5 MG/ML VIAL. IVP ONE (11:15)
--- NOTE | 2020-07-17 11:22 | RAD ---
EXAM: CT Abdomen and Pelvis without IV contrast INDICATION: Reason: generalized AP, recent ovarian cyst rupture / Spl. Instructions: / History: TECHNIQUE: Multi-detector row CT images were acquired from the lung bases through the abdomen and pelvis without the use of IV contrast. Sagittal and coronal images were acquired from the transaxial data. All CT scans performed at this facility utilize dose optimization techniques as appropriate to the exam, including the following: Automated exposure control and adjustment of the mA and/or KV according to patient size (this includes techniques or standardized protocols for targeted exams where dose is indication/reason for exam). ORAL CONTRAST: None COMPARISON: 01/02/[address] without IV contrast FINDINGS: The absence of IV contrast limits evaluation of soft tissue pathology. LOWER CHEST: Unremarkable LIVER: Unremarkable BILIARY SYSTEM: Gallbladder is unremarkable. Bile ducts are not dilated. PANCREAS: Unremarkable SPLEEN: Unremarkable ADRENALS: Unremarkable KIDNEYS & URETERS: Redemonstrated is increased density to the bilateral renal pyramids, approaching formation or renal calculi 1 to 2 mm in diameter in the mid right kidney. BLADDER: Unremarkable REPRODUCTIVE ORGANS: Retroflexed uterus. No dominant adnexal mass or cyst. GASTROINTESTINAL: The stomach, small bowel, and colon are unremarkable. The appendix is normal. MESENTERY/PERITONEUM/RETROPERITONEUM: Trace amount of pelvic free fluid. VASCULAR: Unremarkable LYMPH NODES: No adenopathy OSSEOUS & SOFT TISSUES: Unremarkable IMPRESSION: 1. Trace residual pelvic ascites. No acute pathology otherwise shown on noncontrast abdominal and pelvic CT. 2. Increased density to the bilateral renal pyramids with a nonobstructing mid pole 1 to 2 mm right kidney stone. Query nephrocalcinosis (medullary or pyramidal), with a long list of etiologies including hyperparathyroidism, (hyper or hypo) thyroidism or other pathologic hypercalcemia, hypercalciuric states, sickle cell disease, sarcoidosis, and others. Electronically signed by: Jaun Jorgensen MD (07/17/2020 11:19 AM) [id number]
--- NOTE | 2020-07-17 11:36 | EKG ---
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
--- NOTE | 2020-07-17 11:37 | EKG ---
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
[2020-07-17 12:15] VITALS: BP 94/53
== END 2020-07-17 12:50 | disposition home or self-care (01) ==
LOC: ER 10:08
DX: N20.0 Calculus of kidney (principal); F12.20 Cannabis dependence, uncomplicated; R18.8 Other ascites; K21.9 Gastro-esophageal reflux disease without esophagitis; Z98.51 Tubal ligation status
CPT/HCPCS: 36415; 71045; 74176; 80053; 82947; 83690; 84484; 84703; 85025; 85610; 85730; 93005; 96361; 96374; 96375; 99285; J2405; J3010; J7030

== ENCOUNTER 2020-07-17 20:45 | Emergency (ER) | payer SELFPAY ==
[~2020-07-17] VITALS: Ht 165.1 cm; Wt 45.0 kg
[2020-07-17] MEDS ORDERED: IPRATRPIUM/ALBUTEROL 0.5/2.5MG 3 ML NEBU. ONE (20:50)
--- NOTE | 2020-07-17 21:09 | PHYS DOC ---
Past History Past Medical History: Ovarian Cyst Past Surgical History: Tubal ligation, Other Additional Past Surgical Histo: bowel surgery Alcohol Use: Occasionally Drug Use: None General Adult EDM: Chief Complaint: ASTHMA HPI: HPI: 29-year-old female presents with shortness of breath and asthma attack. Patient was at this ER earlier today for abdominal pain. She was discharged. She tells me that since she got home she has had worsening shortness of breath with wheezing. She has tried albuterol inhaler without relief. She denies cough. No known COVID-19 exposures. No fever or chills. Review of Systems: Review of Systems: Constitutional: Denies fever or chills Eyes: Denies change in visual acuity HENT: Denies nasal congestion or sore throat Respiratory: shortness of breath Cardiovascular: Denies chest pain or edema GI: Denies abdominal pain, nausea, vomiting, bloody stools or diarrhea : Denies dysuria Musculoskeletal: Denies back pain or joint pain Integument: Denies rash Neurologic: Denies headache, focal weakness or sensory changes Endocrine: Denies polyuria or polydipsia Lymphatic: Denies swollen glands Psychiatric: Denies depression or anxiety Heart Score: Risk Factors: Risk Factors: DM, Current or recent (<one month) smoker, HTN, HLP, family history of CAD, obesity. Risk Scores: Score 0 - 3: 2.5% MACE over next 6 weeks - Discharge Home Score 4 - 6: 20.3% MACE over next 6 weeks - Admit for Clinical Observation Score 7 - 10: 72.7% MACE over next 6 weeks - Early Invasive Strategies Current Medications: Current Meds: Current Medications Medications (Trade) Dose Ordered Sig/Katherine Start Time Stop Time Status Last Admin Dose Admin Albuterol/ Ipratropium (Duoneb) 3 ml STK-MED ONCE 07/17/20 20:50 07/17/20 20:51 DC Allergies: Allergies: Allergies Coded Allergies Type Severity Reaction Last Updated Verified No Known Drug Allergies 01/02/20 No Physical Exam: PE: Constitutional: Well developed, well nourished, no acute distress, non-toxic appearance. [] HENT: Normocephalic, atraumatic, bilateral external ears normal, oropharynx moist, no oral exudates, nose normal. [] Eyes: PERRLA, EOMI, conjunctiva normal, no discharge. [] Neck: Normal range of motion, no tenderness, supple, no stridor. [] Cardiovascular: Heart rate regular rhythm, no murmur [] Lungs & Thorax: Bilateral breath sounds diminished [] Abdomen: Bowel sounds normal, soft, no tenderness, no masses, no pulsatile masses. [] Skin: Warm, dry, no erythema, no rash. [] Back: No tenderness, no CVA tenderness. [] Extremities: No tenderness, no cyanosis, no clubbing, ROM intact, no edema. [] Neurologic: Alert and oriented X 3, normal motor function, normal sensory function, no focal deficits noted. [] Psychologic: Affect normal, judgement normal, mood anxious. [] EKG: EKG: [] Radiology/Procedures: Radiology/Procedures: [] Impressions: Exam: Chest one view INDICATION: Shortness of breath TECHNIQUE: Frontal view of chest Comparisons: 07/17/2020 FINDINGS: The cardiomediastinal silhouette and pulmonary vessels are within normal limits. The lung and pleural spaces are clear. IMPRESSION: No acute cardiopulmonary process. Electronically signed by: Guanako Rhodes MD (07/17/2020 10:00 PM) [id number] DICTATED AND SIGNED BY: GUANAKO RHODES MD DATE: 07/17/202199 CC: REAGAN LAYNE DO; PCP,NO ~ Course & Med Decision Making: Course & Med Decision Making Pertinent Labs and Imaging studies reviewed. (See chart for details) The patient's chest x-ray is unremarkable. I have given her a DuoNeb treatment. I will also give her 125 Solu-Medrol. The patient's breathing is more clear. I do not believe she is having significant asthma exacerbation. I think some of this is driven by her anxiety about her health. Her frequent marijuana use could also have something to do with it. I have advised that she quit taking drugs. She is stable for discharge at this time. [] Dragon Disclaimer: Aníbal Disclaimer: This electronic medical record was generated, in whole or in part, using a voice recognition dictation system. Departure Departure: Impression: Primary Impression: Anxiety Additional Impressions: Shortness of breath Asthma Qualified Codes: J45.20 - Mild intermittent asthma, uncomplicated Disposition: 01 HOME/RESIDENCE PRIOR TO ADM Condition: STABLE Referrals: PCP,MARGOT (PCP) Patient Instructions: Asthma Prevention-Brief Justification of Admission: Justification of Admission: Justification of Admission Dx: N/A REAGAN LAYNE DO Jul 17, 2020 21:09
[2020-07-17] MEDS ORDERED: IPRATRPIUM/ALBUTEROL 0.5/2.5MG 3 ML NEBU. NEB ONE (21:15)
[2020-07-17] MEDS ORDERED: methylPREDNISolone SOD SUCC PF 125 MG/2 ML VIAL. IV ONE (21:15)
--- NOTE | 2020-07-17 22:03 | RAD ---
Exam: Chest one view INDICATION: Shortness of breath TECHNIQUE: Frontal view of chest Comparisons: 07/17/2020 FINDINGS: The cardiomediastinal silhouette and pulmonary vessels are within normal limits. The lung and pleural spaces are clear. IMPRESSION: No acute cardiopulmonary process. Electronically signed by: Guanako Montilla MD (07/17/2020 10:00 PM) [id number]
[2020-07-17 22:12] LABS: BASO % 0 % (0-3); EOS % 0 % (0-3); HEMATOCRIT 36.5 % (36.0-47.0); HEMOGLOBIN 12.4 g/dL (12.0-15.5); LYMPH # 1.9 x10^3/uL (1.0-4.8); LYMPH % 20 % (24-48); MEAN CORPUSCULAR HEMOGLOBIN 35 pg (25-35); MEAN CORPUSCULAR HGB CONC 34 g/dL (31-37); MEAN CORPUSCULAR VOLUME 103 fL (79-100); MONO # 0.6 x10^3/uL (0.0-1.1); MONO % 6 % (0-9); NEUT # 7.2 x10^3uL (1.8-7.7); NEUT % 74 % (31-73); PLATELET COUNT 208 x10^3/uL (140-400); RED BLOOD COUNT 3.56 x10^6/uL (3.50-5.40); RED CELL DISTRIBUTION WIDTH 15.4 % (11.5-14.5); WHITE BLOOD COUNT 9.7 x10^3/uL (4.0-11.0)
[2020-07-17 22:16] LABS: AMPHETAMINE/METHAMPHETAMINE NEG (NEG); BARBITURATES NEG (NEG); BENZODIAZEPINES NEG (NEG); CANNABINOIDS POS (NEG); COCAINE NEG (NEG); METHADONE NEG (NEG); OPIATES NEG (NEG); PHENCYCLIDINE NEG (NEG)
[2020-07-17 22:31] LABS: CLARITY,URINE CLEAR; COLOR,URINE YELLOW
[2020-07-17 22:31] LABS: CALCIUM 8.7 mg/dL (8.5-10.1); CREATININE 0.9 mg/dL (0.6-1.0); GFR 88.4; POTASSIUM 3.2 mmol/L (3.5-5.1)
[2020-07-17 22:32] LABS: BACTERIA,URINE FEW /HPF (0-FEW); BILIRUBIN,URINE NEG (NEG); GLUCOSE,URINE NEG (NEG); NITRITE,URINE NEG (NEG); RBC,URINE OCC /HPF (0-2); UROBILINOGEN,URINE 0.2 mg/dL (0.2 mg/dL)
[2020-07-17 22:37] LABS: ALBUMIN 3.6 g/dL (3.4-5.0); ALBUMIN/GLOBULIN RATIO 1.2 (1.0-1.7); TOTAL BILIRUBIN 0.4 mg/dL (0.2-1.0); TOTAL PROTEIN 6.7 g/dL (6.4-8.2)
[2020-07-17 23:00] VITALS: BP 102/80
== END 2020-07-17 23:05 | disposition home or self-care (01) ==
LOC: ER 20:45
DX: J45.20 Mild intermittent asthma, uncomplicated (principal); F41.9 Anxiety disorder, unspecified
CPT/HCPCS: 36415; 71045; 80053; 80307; 81001; 85025; 94640; 96374; 99284; J2930

== ENCOUNTER 2020-07-18 12:56 | Emergency (ER) | payer SELFPAY ==
[~2020-07-18] VITALS: Ht 165.1 cm; Wt 45.0 kg
[2020-07-18] MEDS ORDERED: IPRATRPIUM/ALBUTEROL 0.5/2.5MG 3 ML NEBU. ONE (13:00)
--- NOTE | 2020-07-18 13:07 | PHYS DOC ---
Past History Past Medical History: Anxiety, Ovarian Cyst Past Surgical History: Tubal ligation, Other Additional Past Surgical Histo: bowel surgery Alcohol Use: Occasionally Drug Use: None Adult General Chief Complaint Chief Complaint: ASTHMA HPI HPI Patient is a 29-year-old female who presents for anxiety. This is her third visit in 24 hours. Prior charts and extensive diagnostic work-up reviewed. Patient reports being discharged earlier this morning. Was able to sleep and on waking, reported shortness of breath. Patient presents today wanting something for anxiety Review of Systems Review of Systems Fourteen body systems of review of systems have been reviewed. See HPI for pertinent positives and negative responses, other mills all other systems are negative, non-pertinent or non-contributory Current Medications Current Medications Current Medications Medications (Trade) Dose Ordered Sig/Katherine Start Time Stop Time Status Last Admin Dose Admin Albuterol/ Ipratropium (Duoneb) 3 ml 1X ONCE 07/18/20 13:15 07/18/20 13:16 UNV Allergies Allergies Allergies Coded Allergies Type Severity Reaction Last Updated Verified No Known Drug Allergies 01/02/20 No Physical Exam Physical Exam Constitutional: Well developed, well nourished, moderate distress, non-toxic appearance. HENT: Normocephalic, atraumatic, bilateral external ears normal, oropharynx moist, no masses, uvula midline, malum potty score 1 without any obvious peritonsillar abscesses or other masses, no oral exudates, nose normal. Eyes: PERRLA, EOMI, conjunctiva normal, no discharge. Neck: Normal range of motion, no tenderness, supple, no stridor. Cardiovascular: Heart rate regular, sinus rhythm, no murmurs rubs or gallops Lungs & Thorax: Bilateral breath sounds clear to auscultation Abdomen: Bowel sounds normal, soft, no tenderness, no masses, no pulsatile masses. Nonsurgical abdomen, no peritoneal signs Skin: Warm, dry, no erythema, no rash. Back: No tenderness, no CVA tenderness. Extremities: No tenderness, no cyanosis, no clubbing, ROM intact, no edema. Neurologic: Alert and oriented X 3, grossly normal motor & sensory function, no focal deficits noted. Psychologic: Anxious, labored breathing that is focal to upper airway, this stops when patient is speaking and is able to speak in complete sentences and then after she is done talking she becomes tachypneic. Asking for benzodiazepine medications, appears malingering Current Patient Data Vital Signs Vital Signs Date Time Temp Pulse Resp B/P (MAP) Pulse Ox O2 Delivery O2 Flow Rate FiO2 07/18/20 13:04 98 Room Air EKG EKG EKG ordered and interpreted by myself at 1315 hrs. as sinus rhythm at 58 bpm, unremarkable intervals, no axis deviation, no acute ischemic findings, no STEMI Radiology/Procedures Radiology/Procedures [] Course & Med Decision Making Course & Med Decision Making Patient seen and evaluated on immediate ER arrival Airway patent, patient in mild respiratory distress but appears self-induced without any other noted abnormalities, vitals remarkable for tachypnea only Comprehensive work-up performed in past 24 hours reviewed History and physical exam obtained, patient denies any inciting factors, drug use or other factors since last ER visit EKG obtained and unremarkable, given that patient has had CT scan and chest x- ray in the past 24 hours without any new inciting event or trauma with bilateral breath sounds, no indication for further testing PERC negative Patient requesting anxiolytic at this time, I refused to give into demands for any benzodiazepine medications, 5 mg BuSpar p.o. administered I discussed most likely diagnosis of anxiety, less likely any cardiac, pulmonary or other concerning disease processes given extensive work-up in past 24 hours and presentation today that appears self-induced/malingering in origin I discussed need for PCP follow-up and likely outpatient behavioral health specialist for therapy and medical intervention as indicated Strict return precautions were discussed with good understanding by patient, all questions and concerns addressed prior to discharge home in stable condition Dragon Disclaimer Dragon Disclaimer This electronic medical record was generated, in whole or in part, using a voice recognition dictation system. Departure Departure: Impression: Primary Impression: Anxiety Disposition: HOME/RESIDENCE PRIOR TO ADM Condition: STABLE Referrals: PCP,NO (PCP) Justification of Admission: Justification of Admission: Justification of Admission Dx: N/A ENZO SPICER DO Jul 18, 2020 13:07
[2020-07-18] MEDS ORDERED: IPRATRPIUM/ALBUTEROL 0.5/2.5MG 3 ML NEBU. NEB ONE (13:15)
--- NOTE | 2020-07-18 13:24 | EKG ---
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
[2020-07-18] MEDS ORDERED: busPIRone 5 MG TABLET. PO ONE (13:30)
[2020-07-18 13:31] VITALS: BP 139/84
== END 2020-07-18 13:38 | disposition home or self-care (01) ==
LOC: ER 12:56
DX: F41.9 Anxiety disorder, unspecified (principal); R06.02 Shortness of breath
CPT/HCPCS: 93005; 94640; 99283-25

== ENCOUNTER → 2020-12-02 | Emergency (ER) | payer OTHER ==
[~2020-12-02] VITALS: Ht 165.1 cm; Wt 45.0 kg
[~2020-12-02] MED LIST changes: +IV NORMAL SALINE 1,000ML 1,000 ML IV SCH; +KETOROLAC 15 MG/ML VIAL. IVP ONE; +KETOROLAC 60 MG/2 ML VIAL. IM ONE; +MORPHINE SULFATE 4 MG/ML DISP.SYRIN. IV ONE; +ONDANSETRON PF 4 MG/2 ML VIAL. IVP ONE
--- NOTE | 2020-12-02 09:48 | PHYS DOC ---
Past History Past Medical History: Anxiety, Endometriosis, Ovarian Cyst Past Surgical History: Tubal ligation, Other Additional Past Surgical Histo: bowel surgery Alcohol Use: Occasionally Drug Use: None Adult General Chief Complaint Chief Complaint: ABDOMINAL PAIN HPI HPI Patient is a 29-year-old female with a self-reported history of endometriosis and anxiety who presents emergency department complaining of abdominal pain. Patient states she had worsening sensation of abdominal pain in the lower abdomen primarily in the suprapubic region but also in the right portion of the abdomen. Patient description of it is a vague is having difficulty describing the nature and location of the pain. Does state that she had some nausea associated with it and over the last 2 days has had 2 episodes of nonbloody nonbilious vomiting. Denies any fever, diarrhea. States she has not had an attack of endometriosis for many years. States that she attempted a Tylenol this morning but threw it up. Review of Systems Review of Systems Constitutional: Denies fever or chills [] Eyes: Denies change in visual acuity, redness, or eye pain [] HENT: Denies nasal congestion or sore throat [] Respiratory: Denies cough or shortness of breath [] Cardiovascular: No additional information not addressed in HPI [] GI: Denies abdominal pain, nausea, vomiting, bloody stools or diarrhea [] : Denies dysuria or hematuria [] Musculoskeletal: Denies back pain or joint pain [] Integument: Denies rash or skin lesions [] Neurologic: Denies headache, focal weakness or sensory changes [] Endocrine: Denies polyuria or polydipsia [] All other systems were reviewed and found to be within normal limits, except as documented in this note. Current Medications Current Medications Current Medications Medications (Trade) Dose Ordered Sig/[facility] Start Time Stop Time Status Last Admin Dose Admin Ondansetron HCl (Zofran) 4 mg 1X ONCE 12/02/20 09:45 12/02/20 09:46 Sodium Chloride 1,000 ml @ 1,000 mls/hr Q1H 12/02/20 09:45 12/02/20 10:44 12/02/20 09:42 1,000 MLS/HR Allergies Allergies Allergies Coded Allergies Type Severity Reaction Last Updated Verified No Known Drug Allergies 01/02/20 No Physical Exam Physical Exam Constitutional: Well developed, well nourished, no acute distress, non-toxic appearance. [] HENT: Normocephalic, atraumatic, bilateral external ears normal, oropharynx moist, no oral exudates, nose normal. [] Eyes: PERRLA, EOMI, conjunctiva normal, no discharge. [] Neck: Normal range of motion, no tenderness, supple, no stridor. [] Cardiovascular:Heart rate regular rhythm, no murmur [] Lungs & Thorax: Bilateral breath sounds clear to auscultation [] Abdomen: Bowel sounds normal, soft, no tenderness, no masses, no pulsatile masses. [] Skin: Warm, dry, no erythema, no rash. [] Back: No tenderness, no CVA tenderness. [] Extremities: No tenderness, no cyanosis, no clubbing, ROM intact, no edema. [] Neurologic: Alert and oriented X 3, normal motor function, normal sensory function, no focal deficits noted. [] Psychologic: Affect normal, judgement normal, mood normal. [] Current Patient Data Vital Signs Vital Signs Date Time Temp Pulse Resp B/P (MAP) Pulse Ox O2 Delivery O2 Flow Rate FiO2 12/02/20 09:27 97.9 50 22 113/58 (76) 98 Room Air EKG EKG [] Radiology/Procedures Radiology/Procedures [] Heart Score Risk Factors: Risk Factors: DM, Current or recent (<one month) smoker, HTN, HLP, family history of CAD, obesity. Risk Scores: Risk Factors: DM, Current or recent (<one month) smoker, HTN, HLP, family history of CAD, obesity. Course & Med Decision Making Course & Med Decision Making Pertinent Labs and Imaging studies reviewed. (See chart for details) 29-year-old female with nonspecific abdominal pain. No significant right lower quadrant tenderness or rebound. No fevers here. Not tachycardic. Will obtain basic labs improved patient symptomatically and reevaluate. Labs returned unremarkable. Patient still complaining of mild abdominal pain but still without any significant tenderness. No evidence of acute appendicitis, cholecystitis or any other significant abnormality at this time. Will discharge home with antinausea and pain control. Dragon Disclaimer Dragon Disclaimer This electronic medical record was generated, in whole or in part, using a voice recognition dictation system. Departure Departure: Impression: Primary Impression: Abdominal pain Disposition: 01 DC HOME SELF CARE/HOMELESS Condition: IMPROVED Referrals: PCP,NO (PCP) Patient Instructions: Endometriosis Additional Instructions: EMERGENCY DEPARTMENT GENERAL DISCHARGE INSTRUCTIONS Thank you for coming to [facility] Emergency Department (ED) today and trusting us with you care. We trust that you had a positive experience in our Emergency Department. If you wish to speak to the department management, you may call the Director at [phone]. YOUR FOLLOW UP INSTRUCTIONS ARE FOLLOWS: 1. Do you have a private Doctor? If you do not have a private doctor, please ask for a resource list of physicians or clinics that may be able to assist you with follow up care. 2. The Emergency Physicain has interpreted your x-rays. The X-Ray specialist will also review them. If there is a change in the findings, you will be notified in 48 hours when at all possible. 3. A lab test or culture has been done, your results will be reviewed and you will be notified if you need a change in treatment. ADDITIONAL INSTRUCTIONS AND INFORMATION: 1. Your care today has been supervised by a physician who is specially trained in emergency care. Many problems require more than one evaluation for a complete diagnosis and treatment. We recommend that you schedule your follow up appointment as recommended to ensure complete treatment of you illness or injury. If you are unable to obtain follow up care and continue to have a problem, or if your condition worsens, we recommend that you return to the ED. 2. We are not able to safely determine your condition over the phone nor are we able to give sound medical advice over the phone. For these safety reasons, if you call for medical advice we will ask you to come to the ED for further evaluation. 3. If you have any questions regarding these discharge instructions please call the ED at [phone]. SAFETY INFORMATION: In the interest of safety, wellness, and injury prevention; we encourage you to wear your sealbelt, if you smoke; quite smoking, and we encourage family to use a protective helmet for bicycling and other sporting events that present an increased risk for head injury. IF YOUR SYMPTOMS WORSEN OR NEW SYMPTOMS DEVELOP, OR YOU HAVE CONCERNS ABOUT YOUR CONDITION; OR IF YOUR CONDITION WORSENS WHILE YOU ARE WAITING FOR YOUR FOLLOW UP APPOINTMENT; EITHER CONTACT YOUR PRIMARY CARE DOCTOR, THE PHYSICIAN WHOSE NAME AND NUMBER YOU WERE GIVEN, OR RETURN TO THE ED IMMEDIATELY. Scripts Ondansetron Hcl (ZOFRAN) 4 Mg Tablet 1 TAB PO PRN Q6HRS PRN for NAUSEA, #6 TAB Prov: GISSELL SOSA MD 12/02/20 GISSELL SOSA MD Dec 02, 2020 09:48
[2020-12-02 09:55] LABS: BASO % 1 % (0-3); EOS % 0 % (0-3); LYMPH # 0.9 x10^3/uL (1.0-4.8); LYMPH % 17 % (24-48); MEAN CORPUSCULAR HEMOGLOBIN 34 pg (25-35); MEAN CORPUSCULAR HGB CONC 33 g/dL (31-37); MEAN CORPUSCULAR VOLUME 103 fL (79-100); MONO # 0.4 x10^3/uL (0.0-1.1); MONO % 8 % (0-9); NEUT # 3.9 x10^3uL (1.8-7.7); NEUT % 74 % (31-73); PLATELET COUNT 182 x10^3/uL (140-400); RED BLOOD COUNT 4.16 x10^6/uL (3.50-5.40); RED CELL DISTRIBUTION WIDTH 14.3 % (11.5-14.5); WHITE BLOOD COUNT 5.2 x10^3/uL (4.0-11.0)
[2020-12-02 10:01] LABS: CALCIUM 9.1 mg/dL (8.5-10.1); CREATININE 0.9 mg/dL (0.6-1.0); GFR 88.4; POTASSIUM 3.6 mmol/L (3.5-5.1); PREG TEST PT QUAL NEGATIVE (NEG)
[2020-12-02 10:08] LABS: ALBUMIN 3.8 g/dL (3.4-5.0); ALBUMIN/GLOBULIN RATIO 1.1 (1.0-1.7); TOTAL BILIRUBIN 0.2 mg/dL (0.2-1.0); TOTAL PROTEIN 7.2 g/dL (6.4-8.2)
[2020-12-02 11:27] LABS: BACTERIA,URINE 0 /HPF (0-FEW); BILIRUBIN,URINE NEG (NEG); CLARITY,URINE HAZY; COLOR,URINE YELLOW; GLUCOSE,URINE NEG (NEG); NITRITE,URINE NEG (NEG); SQUAMOUS EPITHELIAL CELL,UR MOD /LPF; UROBILINOGEN,URINE 0.2 mg/dL (0.2 mg/dL)
[2020-12-02 12:01] VITALS: BP 114/52
== END | disposition home or self-care (01) ==
LOC: ER 09:17
DX: R10.31 Right lower quadrant pain (principal); R11.2 Nausea with vomiting, unspecified; F41.9 Anxiety disorder, unspecified; Z98.51 Tubal ligation status
CPT/HCPCS: 36415; 80053; 81001; 82550; 83690; 84703; 85025; 96361; 96374; 96375; 96376; 99284; J1885; J2270; J2405; J7030

== ENCOUNTER 2022-01-25 07:33 | Emergency (ER) | payer OTHER ==
[~2022-01-25] VITALS: Ht 165.1 cm; Wt 45.0 kg
[2022-01-25 07:33] VITALS: BP 119/77
[~2022-01-25 07:33] MED LIST changes: -IV NORMAL SALINE 1,000ML 1,000 ML IV SCH; -KETOROLAC 15 MG/ML VIAL. IVP ONE; -KETOROLAC 60 MG/2 ML VIAL. IM ONE; -MORPHINE SULFATE 4 MG/ML DISP.SYRIN. IV ONE; -ONDANSETRON PF 4 MG/2 ML VIAL. IVP ONE
[2022-01-25] MEDS: LIDOCAINE 2%/EPI 1:100,000 20 ML VIAL. IJ ONE (08:28)
[2022-01-25] MEDS ORDERED: CLIN-95 PO (08:49)
[2022-01-25] MEDS ORDERED: CEFI400C PO (08:49)
--- NOTE | 2022-01-25 08:49 | PHYS DOC ---
Past History Past Medical History: Anxiety, Endometriosis, Ovarian Cyst Past Surgical History: Tubal ligation, Other Additional Past Surgical Histo: bowel surgery Alcohol Use: Occasionally Drug Use: None General Adult EDM: Chief Complaint: ABSCESS HPI: HPI: 31 yo F PMH endometriosis and "bowel malrotation" presents to the ED with complaints of painful genital lesion that started approximately 1 week ago, reports it hurts to sit down. States she had a similar lesion 2 months ago and was seen by her PCP for a "labial cyst" (shows me a photo of her paperwork on h er phone). Had an incision and states the pain immediately improved. Cultures grew E. coli and was treated for sexual transmitted diseases, STI tests were all negative. Reports tetanus is up to date. Is not concerned for stis. States "I have a high pain tolerance and couldn't wait to be seen by my pcp tomorrow." H/o I&D 4 years ago. No known h/o bartholins cyst. Review of Systems: Review of Systems: Constitutional: Denies fever or chills Eyes: Denies change in visual acuity HENT: Denies nasal congestion or sore throat Respiratory: Denies cough or shortness of breath Cardiovascular: Denies chest pain or edema GI: Denies nausea or vomiting : Denies dysuria or vaginal bleeding Musculoskeletal: Denies back pain or joint pain Integument: Denies rash or diaphoresis Neurologic: Denies headache, focal weakness or sensory changes Endocrine: Denies polyuria or polydipsia Lymphatic: Denies swollen glands Psychiatric: Denies depression or anxiety Current Medications: Current Meds: Current Medications Medications (Trade) Dose Ordered Sig/Katherine Start Time Stop Time Status Last Admin Dose Admin Fentanyl Citrate (Fentanyl 2ml Vial) 75 mcg 1X ONCE 01/25/22 08:30 01/25/22 08:31 DC 01/25/22 08:28 75 MCG Lidocaine/ Epinephrine (Xylocaine 2%-Epi 1:100,000) 20 ml 1X ONCE 01/25/22 08:30 01/25/22 08:31 DC 01/25/22 08:28 20 ML Allergies: Allergies: Allergies Coded Allergies Type Severity Reaction Last Updated Verified No Known Drug Allergies 01/02/20 No Physical Exam: PE: Constitutional: Well developed, well nourished, no acute distress, non-toxic appearance, lying right lateral recumbent, appears in pain HENT: Normocephalic, atraumatic, Eyes: EOMI, conjunctiva normal, no discharge. Neck: Normal range of motion, supple, Cardiovascular: S1/2 present, regular rhythm Lungs & Thorax: Speaking in full sentences, bilateral equal chest rise, no tachypnea or increased work of breathing Skin: Warm, dry, no erythema, no rash. [] Extremities: No tenderness, no cyanosis, Neurologic: Alert and oriented X 3, no focal deficits noted. [] Psychologic: Affect normal, judgement normal, mood normal. [] : chaperoned by rn, 4.5 cm x 4.5 cm fluid-filled structure over posterior left labia majora seen on POCUS, lesion is very tender to the touch, no associated erythema, no active drainage, apex of lesion is fluctuant Current Patient Data: Vital Signs: Vital Signs Date Time Temp Pulse Resp B/P (MAP) Pulse Ox O2 Delivery O2 Flow Rate FiO2 01/25/22 07:33 97.5 87 119/77 (91) 99 01/25/22 07:33 16 Room Air EKG: EKG: [] Radiology/Procedures: Radiology/Procedures: Indication: Left labial abscess Procedure: The patient was positioned appropriately in an ob bed and the skin over the incision site was cleaned with iodine. Local anesthesia was used with lidocaine with epi. An incision was then made over the apex of the abscess and 5-10 ccs of purulent material was expressed. Loculations were removed. The drainage cavity was then packed and dressed. The patients tetanus status is up-to-date. The patient tolerated the procedure . Complications: None Heart Score: C/O Chest Pain: No Risk Factors: Risk Factors: DM, Current or recent (<one month) smoker, HTN, HLP, family history of CAD, obesity. Risk Scores: Score 0 - 3: 2.5% MACE over next 6 weeks - Discharge Home Score 4 - 6: 20.3% MACE over next 6 weeks - Admit for Clinical Observation Score 7 - 10: 72.7% MACE over next 6 weeks - Early Invasive Strategies Course & Med Decision Making: Course & Med Decision Making Pertinent Labs and Imaging studies reviewed. (See chart for details) Concern for simple, uncomplicated left labial abscess status post I&D and packing. Skin w/ no evidence of cellulitis. Patient tolerated procedure well. Will prescribe antibiotics and recommend follow-up in 2 to 3 days for repacking/wound check. Will discharge home with strict ED return precautions were given for fever, rash or worsening pain. Encouraged urgent outpatient follow-up with PMD for routine care, consider [facility] evaluation for definitive management of abscesses. Life-threatening processes were considered but are low suspicion at this time, given history, physical exam and ED workup. Pt was educated on all prescription medications and adverse effects. All patient's questions were answered and pt was stable at time of discharge. Life/limb-threatening differential includes but is not limited to, ectopic , septic , sepsis/infection (endometritis, sti/pid, cystitis, pyelonephritis, Berny's gangrene or necrotizing fasciitis, abscess), ovarian torsion, ruptured hemorrhagic ovarian cyst, endometriosis, ureterolithiasis, thrombophlebitis, hemorrhage/DIC, organ prolapse, abdominal aortic aneurysm, mesenteric ischemia, neoplasm, bowel obstruction or surgical abdomen. I have spoken with the patient and/or caregivers. I explained the patient's condition, diagnoses and treatment plan based on the information available to me at this time. I have answered the patient and/or caregiver's questions and addressed any concerns. The patient and/or caregivers have a good understanding of patient's diagnosis, condition and treatment plan as can be expected at this point. Vital signs have been stable. Patient's condition is stable and appropriate for discharge from the emergency department. Patient will pursue further outpatient evaluation with primary care physician or other designated or consulting physician as outlined in the discharge instructions. The patient and/or caregivers are agreeable to this plan of care and follow-up instructions have been explained in detail. The patient and/or caregivers have received these instructions in written form and have expressed an understanding of the discharge instructions. The patient and/or caregivers are aware that any significant change of condition or worsening of symptoms should prompt immediate return to this or the closest emergency department or call to 911. Aníbal Disclaimer: Aníbal Disclaimer: This electronic medical record was generated, in whole or in part, using a voice recognition dictation system. Departure Departure: Impression: Primary Impression: Abscess of left genital labia Disposition: HOME / SELF CARE / HOMELESS Condition: STABLE Referrals: ERICA MCPHERSON (PCP) in 2 days for incision and draingage packing wound check Patient Instructions: Abscess, Incision and Drainage, Care After Additional Instructions: FOLLOW UP WITH OBGYN: for definitive management of labial abscesses [facility] [address], [address] [place] [address] EMERGENCY DEPARTMENT GENERAL DISCHARGE INSTRUCTIONS Thank you for coming to [facility] (ED) today and trusting us with you care. We trust that you had a positivie experience in our Emergency Department. If you wish to speak to the department management, you may call the director at [phone]. YOUR FOLLOW UP INSTRUCTIONS ARE FOLLOWS: 1. Do you have a private Doctor? If you do not have a private doctor, please ask for a resource list of physicians or clinics that may be able to assist you with follow up care. 2. The Emergency Physician has interpreted your x-rays. The X-Ray specialist will also review them. If there is a change in the findings, you will be notified in 48 hours when at all possible. 3. A lab test or culture has been done, your results will be reviewed and you will be notified if you need a change in treatment. ADDITIONAL INSTRUCTIONS AND INFORMATION: 1. Your care today has been supervised by a physician who is specially trained in emergency care. Many problems require more than one evaluation for a complete diagnosis and treatment. We recommend that you schedule your follow up appointment as recommended to ensure complete treatment of you illness or injury. If you are unable to obtain follow up care and continue to have a problem, or if your condition worsens, we recommend that you return to the ED. 2. We are not able to safely determine your condition over the phone nor are we able to give sound medical advice over the phone. For these safety reasons, if you call for medical advice we will ask you to come to the ED for further evaluation. 3. If you have any questions regarding these discharge instructions please call the ED at [phone]. SAFETY INFORMATION: In the interest of safety, wellness, and injury prevention; we encourage you to wear your sealbelt, if you smoke; quite smoking, and we encourage family to use a protective helmet for bicycling and other sporting events that present an increased risk for head injury. IF YOUR SYMPTOMS WORSEN OR NEW SYMPTOMS DEVELOP, OR YOU HAVE CONCERNS ABOUT YOUR CONDITION; OR IF YOUR CONDITION WORSENS WHILE YOU ARE WAITING FOR YOUR FOLLOW UP APPOINTMENT; EITHER CONTACT YOUR PRIMARY CARE DOCTOR, THE PHYSICIAN WHOSE NAME AND NUMBER YOU WERE GIVEN, OR RETURN TO THE ED IMMEDIATELY. Scripts Cefixime (SUPRAX) 400 Mg Capsule 1 CAP PO DAILY for abscess for 7 Days, #7 CAP 0 Refills Prov: CLAUDINE CHEN DO 01/25/22 Clindamycin Hcl (CLINDAMYCIN HCL) 300 Mg Capsule 1 CAP PO QID for abscess for 7 Days, #28 CAP Prov: CLAUDINE CHEN DO 01/25/22 CLAUDINE CHEN DO Jan 25, 2022 08:49
== END 2022-01-25 08:52 | disposition home or self-care (01) ==
LOC: ER 07:33
DX: N76.4 Abscess of vulva (principal); Z98.51 Tubal ligation status
CPT/HCPCS: 56405; 96372; 99284; J3010; 56420